=== PATIENT | female | born 1990 | race Caucasian/White ===

== ENCOUNTER 2020-04-30 01:26 | Emergency (ER) | payer BC ==
[~2020-04-30] VITALS: Ht 172.7 cm; Wt 73.7 kg
[2020-04-30 01:28] VITALS: BP 136/88
--- NOTE | 2020-04-30 01:43 | NUR ---
URINE COLLECTED AND SENT AT THIS TIME.
[2020-04-30 01:49] LABS: HCG UR SG 1.008 (1.003-1.030); MICROSCOPIC NOT IND
[2020-04-30] MEDS ORDERED: DIAZEPAM 5 MG TABLET PO ONE (03:00)
[2020-04-30] MEDS ORDERED: KETOROLAC 30 MG/1 ML IM ONE (03:00)
[2020-04-30] MEDS ORDERED: LIDODERM 5% PATCH TD ONE ×2 (03:00→03:05)
[2020-04-30] MEDS ORDERED: KETOROLAC 30 MG/1 ML ONE (03:05)
[2020-04-30] MEDS ORDERED: DIAZEPAM 5 MG TABLET ONE (03:05)
== END 2020-04-30 04:05 | disposition home or self-care (01) ==
LOC: ED 03:55
DX: M54.42 Lumbago with sciatica, left side (principal); F10.10 Alcohol abuse, uncomplicated; F12.10 Cannabis abuse, uncomplicated; F17.210 Nicotine dependence, cigarettes, uncomplicated; Y90.9 Presence of alcohol in blood, level not specified
CPT/HCPCS: 81003; 81025; 96372; 99283; J1885